=== PATIENT | female | born 1990 | race Hispanic/Latino ===

== ENCOUNTER 2017-04-12 05:09 | Emergency (ER) | payer OTHER ==
[~2017-04-12] VITALS: Ht 144.8 cm; Wt 74.4 kg
[~2017-04-12 05:09] MED LIST: ERYTHROM ETH400 MG OR; IBUPROFEN600 MG PO; LOMOTIL2.5 MG PO; LOTRISONE EX; PRENATA8 PO; ROBITUSS13 OR; ROBITUSSI8 OR
[2017-04-12] MEDS ORDERED: PERCOCET 5/325M1 TAB PO (05:29)
[2017-04-12] MEDS ORDERED: AMOXICILLIN500 MG PO (05:29)
[2017-04-12 05:50] VITALS: BP 120/70
== END 2017-04-12 05:50 | disposition home or self-care (01) | DRG 153 ==
LOC: ED 05:09
DX: H66.91 Otitis media, unspecified, right ear (principal); H60.501 Unspecified acute noninfective otitis externa, right ear

== ENCOUNTER 2018-07-22 16:10 | Emergency (ER) | payer OTHER ==
[~2018-07-22] VITALS: Ht 144.8 cm; Wt 59.2 kg
[~2018-07-22 16:10] MED LIST changes: +AMOXICILLIN500 MG PO; +PERCOCET 5/325M1 TAB PO
[2018-07-22 17:05] LABS: URINE BILIRUBIN - DIPSTICK NEGATIVE (NEGATIVE); URINE BLOOD DIPSTICK TRACE-LYSED (NEGATIVE); URINE COLOR YELLOW; URINE GLUCOSE - DIPSTICK NEGATIVE (NEGATIVE); URINE KETONE NEGATIVE (NEGATIVE); URINE LEUK ESTERASE NEGATIVE (NEGATIVE); URINE NITRITE - DIPSTICK NEGATIVE (Negative); URINE PH 8.5 (4.5-8.0); URINE PROTEIN - DIPSTICK TRACE mg/dL (NEG-TRACE); URINE SPECIFIC GRAVITY 1.015
[2018-07-22 17:08] LABS: HEMOGLOBIN 13.8 g/dl (12.0-16.0); IMMATURE GRANULOCYTES 0.9 % (0.0-5.0); MEAN CELL VOLUME 91.2 fL CALC (80.0-100.0); MEAN CORPUSCULAR HGB 30.5 pG CALC (26.0-32.0); MEAN CORPUSCULAR HGB CONC 33.5 g/L CALC (32.0-36.0); NEUT# 6.78 thou/uL (2.00-7.15); RED BLOOD COUNT 4.52 mill/uL (4.20-5.60); RED CELL DISTRI WIDTH 12.7 % (11.5-15.5)
[2018-07-22 17:09] LABS: HEMATOCRIT 41.2 % (37.0-47.0)
[2018-07-22 17:24] LABS: ALBUMIN 3.4 g/dL (3.2-5.0); BILIRUBIN, TOTAL 0.3 mg/dL (0.0-1.4); BUN 5 mg/dL (7-17); BUN/CREATININE RATIO 9 (12-20 (CALC)); CHLORIDE 108 mmol/l (95-108); CREATININE 0.6 mg/dL (0.5-1.0); GFR > 60 ML/MIN (>=60 (CALC)); GFR FOR AFR.AMER. > 60 ML/MIN (>=60 (CALC)); LIPASE 296 u/l (23-300); POTASSIUM 3.7 mmol/l (3.5-5.1); SGOT/AST 16 u/l (14-36); TOTAL PROTEIN 6.4 g/dL (6.3-8.2)
[2018-07-22 17:29] LABS: ALKALINE PHOSPHATASE 117 u/l (38-126); ANION GAP 12 (6-22 (CALC)); CARBON DIOXIDE 25 mmol/l (22-30); SODIUM 141 mmol/l (137-146)
[2018-07-22] MEDS ORDERED: ONDANSETRON4 MG PO (18:55)
[2018-07-22 19:07] VITALS: BP 102/68
== END 2018-07-22 19:07 | disposition home or self-care (01) ==
LOC: ED 16:10
PROVIDERS: Family Medicine
DX: R10.13 Epigastric pain (principal); R10.11 Right upper quadrant pain; R11.2 Nausea with vomiting, unspecified; R19.7 Diarrhea, unspecified; K42.9 Umbilical hernia without obstruction or gangrene
CPT/HCPCS: Q9967

== ENCOUNTER 2018-11-25 19:28 | Emergency (ER) | payer OTHER ==
[~2018-11-25] VITALS: Ht 144.8 cm; Wt 70.0 kg
[~2018-11-25 19:28] MED LIST changes: +ONDANSETRON4 MG PO
[2018-11-25 20:16] LABS: HEMATOCRIT 44.3 % (37.0-47.0); HEMOGLOBIN 14.3 g/dl (12.0-16.0); IMMATURE GRANULOCYTES 1.2 % (0.0-5.0); MEAN CELL VOLUME 93.7 fL CALC (80.0-100.0); MEAN CORPUSCULAR HGB 30.2 pG CALC (26.0-32.0); MEAN CORPUSCULAR HGB CONC 32.3 g/L CALC (32.0-36.0); NEUT# 10.56 thou/uL (2.00-7.15); RED BLOOD COUNT 4.73 mill/uL (4.20-5.60); RED CELL DISTRI WIDTH 13.2 % (11.5-15.5)
[2018-11-25 20:22] LABS: URINE BILIRUBIN - DIPSTICK NEGATIVE (NEGATIVE); URINE BLOOD DIPSTICK NEGATIVE (NEGATIVE); URINE COLOR YELLOW; URINE GLUCOSE - DIPSTICK NEGATIVE (NEGATIVE); URINE KETONE TRACE mg/dL (NEGATIVE); URINE NITRITE - DIPSTICK NEGATIVE (Negative); URINE PROTEIN - DIPSTICK NEGATIVE (NEG-TRACE); URINE SPECIFIC GRAVITY >=1.030; URINE UROBILINOGEN - DIPSTICK 0.2 E.U./dL (0.2)
[2018-11-25 20:26] LABS: URINE LEUK ESTERASE SMALL (NEGATIVE)
[2018-11-25 20:33] LABS: URINE SQUAMOUS EPITHELIAL CELL FEW EPI/hpf (0-FEW); URINE WBC 20-50 WBC/hpf (0-5)
[2018-11-25 20:41] LABS: ALKALINE PHOSPHATASE 102 u/l (38-126); AMYLASE 80 u/l (30-110); ANION GAP 13 (6-22 (CALC)); BILIRUBIN, TOTAL 0.4 mg/dL (0.0-1.4); BUN 9 mg/dL (7-17); BUN/CREATININE RATIO 12 (12-20 (CALC)); CARBON DIOXIDE 28 mmol/l (22-30); CHLORIDE 102 mmol/l (95-108); CREATININE 0.7 mg/dL (0.5-1.0); GFR > 60 ML/MIN (>=60 (CALC)); GFR FOR AFR.AMER. > 60 ML/MIN (>=60 (CALC)); LIPASE 193 u/l (23-300); POTASSIUM 4.1 mmol/l (3.5-5.1); SGOT/AST 21 u/l (14-36); SODIUM 139 mmol/l (137-146); TOTAL PROTEIN 7.6 g/dL (6.3-8.2)
[2018-11-25 20:44] LABS: ALBUMIN 4.6 g/dL (3.2-5.0)
[2018-11-25] MEDS ORDERED: MIRALAX3350 N1 PO (21:21)
[2018-11-25] MEDS ORDERED: BACTRIM DS1 TAB PO (21:21)
[2018-11-25 21:50] VITALS: BP 129/73
== END 2018-11-25 21:47 | disposition home or self-care (01) ==
LOC: ED 19:28
PROVIDERS: Family Medicine
DX: N39.0 Urinary tract infection, site not specified (principal); K59.00 Constipation, unspecified; B96.20 Unspecified Escherichia coli [E. coli] as the cause of diseases classified elsewhere; F17.210 Nicotine dependence, cigarettes, uncomplicated

== ENCOUNTER 2019-10-03 | Emergency (ER) | payer OTHER ==
[~2019-10-03] MED LIST changes: +BACTRIM DS1 TAB PO; +MIRALAX3350 N1 PO
[2019-10-03] MEDS ORDERED: AMOXICILLIN500 M2 PO (02:34)
[2019-10-03] MEDS ORDERED: FEVER REDUCER120 MG PO (02:34)
[2019-10-03] MEDS ORDERED: ULTRAM50 M1 PO (02:35)
== END 2019-10-03 03:07 | disposition home or self-care (01) ==
DX: K02.9 Dental caries, unspecified (principal); F17.200 Nicotine dependence, unspecified, uncomplicated

== ENCOUNTER 2019-12-04 02:30 | Observation (INO) | payer OTHER ==
[2019-12-04] VITALS (8 sets, daily range): BP systolic 78–111; BP diastolic 51–68
[~2019-12-04] VITALS: Ht 152.4 cm; Wt 69.6 kg
[~2019-12-04 02:30] MED LIST changes: +AMOXICILLIN500 M2 PO; +FEVER REDUCER120 MG PO; +ULTRAM50 M1 PO
--- NOTE | 2019-12-04 02:33 | NUR ---
PT ARRIVED VIA DCFR WITH DCSO WITH PT. PT VERY AGITATED AND UNCOOPERATIVE. REFUSING TO GET OFF OF EMS STRETCHER....WAIT A MINUTE...WHY ARE YOU SO AGGRESSIVE. AFTER APPROX 5 MINUTES...ATTEMPTED TO MOVE PT TO STRETCHER AND THEN PT MOVED HERSELF. PT APPEARS TO BE HALLUCINATING...DENIES. PT IS ALERT. ORIENTED TO PERSON AND PLACE. MAE. LAN[place]STER.. PLACED ON PULSE OX AND HR IS 140.
--- NOTE | 2019-12-04 02:45 | NUR ---
ATTEMPTED TO GET EKG WITHOUT SUCCESS. PT UNCOOPERATIVE. NOTIFIED. MEDS ORDERED.
--- NOTE | 2019-12-04 03:00 | NUR ---
WHEN I WAS HELPING PT. CHANGE FROM STREET CLOTHS TO HOSPITAL GOWN A SMALL PLASTIC BEG WITH A WHITE SUBSTANCE FELL OUT OF THE RIGHT SIDE OF HER BRA. GIVEN TO OFFICER VICTOR HUGO OLMOS # [id number].
--- NOTE | 2019-12-04 03:00 | NUR ---
VERSED GIVEN/EKG COMPLETED. PT UNDRESSED AND CHANGED INTO GOWN. ATTEMPTED IV START BUT WAS UNABLE....PT UNCOOPERATIVE....2 PT SOFT RESTRAINTS APPLIED TO UPPER EXTREMITIES.
--- NOTE | 2019-12-04 03:20 | NUR ---
IV STARTED/BLOOD DRAWN. PT CATHED WITH MINI CATH FOR URINE SAMPLE. ATIVAN GIVEN. PT RE-POSITIONED.
[2019-12-04 03:27] LABS: HEMATOCRIT 46.7 % (37.0-47.0); HEMOGLOBIN 15.5 g/dl (12.0-16.0); IMMATURE GRANULOCYTES 0.7 % (0.0-5.0); MEAN CELL VOLUME 91.6 fL CALC (80.0-100.0); MEAN CORPUSCULAR HGB 30.4 pG CALC (26.0-32.0); MEAN CORPUSCULAR HGB CONC 33.2 g/dL CAL (32.0-36.0); NEUT# 14.82 thou/uL (2.00-7.15); RED BLOOD COUNT 5.1 mill/uL (4.20-5.60); RED CELL DISTRI WIDTH 12.2 % (11.5-15.5)
[2019-12-04 03:29] LABS: URINE BLOOD DIPSTICK NEGATIVE (NEGATIVE); URINE CLARITY CLEAR; URINE COLOR YELLOW; URINE GLUCOSE - DIPSTICK NEGATIVE (NEGATIVE); URINE KETONE TRACE mg/dL (NEGATIVE); URINE LEUK ESTERASE NEGATIVE (Negative); URINE NITRITE - DIPSTICK NEGATIVE (Negative); URINE PH 6.5 (4.5-8.0); URINE PROTEIN - DIPSTICK TRACE mg/dL (NEG-TRACE); URINE SPECIFIC GRAVITY 1.025; URINE UROBILINOGEN - DIPSTICK 0.2 E.U./dL (0.2)
--- NOTE | 2019-12-04 03:30 | NUR ---
PT KICKING OFF SHEET AND MANAGED TO GET COBAN AND PULSE OX OFF AGAIN. RIGHT ARM SECURED TIGHTER AND COBAN AND PULSE OX RE APPLIED.
[2019-12-04 03:37] LABS: URINE BILIRUBIN - DIPSTICK TRACE (NEGATIVE)
[2019-12-04 03:38] LABS: ALBUMIN 4.8 g/dL (3.2-5.0); ALKALINE PHOSPHATASE 94 u/l (38-126); BUN 13 mg/dL (7-17); BUN/CREATININE RATIO 18 (12-20 (CALC)); CHLORIDE 108 mmol/l (95-108); COCAINE NEGATIVE (NEGATIVE); CREATININE 0.7 mg/dL (0.5-1.0); ETHYL ALCOHOL 0 mg/dl (0-30); GFR > 60 ML/MIN (>=60 (CALC)); GFR FOR AFR.AMER. > 60 ML/MIN (>=60 (CALC)); POTASSIUM 3.4 mmol/l (3.5-5.1); SGOT/AST 23 u/l (14-36); SODIUM 140 mmol/l (137-146); TETRAHYDROCANNABIONOL NEGATIVE (NEGATIVE); TOTAL PROTEIN 8.5 g/dL (6.3-8.2)
[2019-12-04 03:39] LABS: BARBITURATES NEGATIVE (NEGATIVE); METHADONE NEGATIVE (NEGATIVE); OXCYCODONE NEGATIVE (NEGATIVE); TRICYLIC ANTIDEPRESSANTS NEGATIVE (NEGATIVE)
[2019-12-04 03:42] LABS: ANION GAP 19 (6-22 (CALC)); BILIRUBIN, TOTAL 0.7 mg/dL (0.0-1.4); CARBON DIOXIDE 16 mmol/l (22-30)
--- NOTE | 2019-12-04 04:00 | NUR ---
UNABLE TO RECONCILE MEDS.
--- NOTE | 2019-12-04 04:00 | NUR ---
PT THRASHING ABOUT. USING FOUL LAUNGUAGE. FINALLY HAD TO TIE AND TAPE SHEET TO BED TO KEEP PT FROM EXPOSING HERSELF. PT NOW HAS FALLEN ASLEEP.
--- NOTE | 2019-12-04 05:00 | NUR ---
DR BERRIOS NOTIFIEDOF LACTIC ACID LRVEL
--- NOTE | 2019-12-04 05:20 | NUR ---
TO CT VIA STRETCHER. PT REMAINS CALM/SLEEPING.
--- NOTE | 2019-12-04 06:00 | NUR ---
PT RETURNED FROM CT...BLOOD CULTURES X 2 AND ABG'S COMPLETED. PT IS NOW ALERT COOPERATIVE. ORIENTED TO PERSON, PLACE...BUT NOT CERTAIN WHY SHE IS HERE. EXPLAINED TO PT WHAT WAS GOING ON AND THAT SHE WOULD BE TAKEN TO ICU SHORTLY. CRITICAL PT IN ANOTHER ROOM....DELAY IN TRANSPORT.
--- NOTE | 2019-12-04 06:20 | NUR ---
PT RESTING. REPORT TO SUZANNE. PT TO FLOOR VIA STRETCHER WITH IV'S INFUSING.
--- NOTE | 2019-12-04 06:26 | NUR ---
29 yr old uzbek female admitted to icu8 per stretcher from er. pt drowsy but cooperative. transferred self to bed. bed weight obtained.
--- NOTE | 2019-12-04 06:55 | NUR ---
RECIEVED REPORT FROM JOSE PALACIOS. ASSUMED PT CARE.
--- NOTE | 2019-12-04 07:05 | NUR ---
PT RESTING IN BED, EYES CLOSED. AROUSED EASILY. PT REMAINS DROWSY. A&0X3, ABLE TO MAKE NEEDS KNOWN. SR ON TELEMETRY, DENIES CP, SOB OR DISTRESS AT THIS TME. RESPIRATIONS EVEN. UNLABORED, SA02@98%RA, LS CLEAR THROUGHOUT. ABDOMEN SOFT, NON-TENDER, LBM 5-15-20. 20G LH INFUSING NS@125ML/HR, NO S/S OF INFILTRATION OR INFECTION NOTED AT SITE. PT ASKING IF DCF OR THE POLICE ARE INVOLVED. THIS CARPENTER PROTOTYPE IS UNABLE TO PROVIDE WITH THAT INFORMATION AT THIS TIME. REFERRED PT TO CM FOR THAT INFORMATION. PT ORIENTED TO UNIT, ROOM, CALL LIGHT AND SAFETY. CALL LIGHT IN REACH. WILL MONITOR.
--- NOTE | 2019-12-04 07:55 | NUR ---
RECIEVED REPORT FROM JUSTYN PALACIOS. ASSUMED PT CARE.
--- NOTE | 2019-12-04 08:15 | NUR ---
DIETARY ON UNIT, BREAKFAST TRAY SET UP.
--- NOTE | 2019-12-04 09:07 | NUR ---
PT CALLED FOR ASSISTANCE WITH LOWERING THE BED, ASSISTANCE GIVEN.
--- NOTE | 2019-12-04 10:00 | NUR ---
PT RESTING IN BED WITH EYES CLOSED, RESPIRATIONS EVEN/UNLABORED. NO DISTRESS NOTED.
--- NOTE | 2019-12-04 11:00 | NUR ---
BALJIT LOPEZ AT BEDSIDE
--- NOTE | 2019-12-04 11:30 | NUR ---
DR. RICHTER AT BEDSIDE FOR ASSESSMENT AND TO DISCUSS PLAN OF CARE, NEW ORDERS RECIEVED.
--- NOTE | 2019-12-04 12:00 | NUR ---
IV site discontinued, cath intact. No edema , no redness, voices no discomfort.
--- NOTE | 2019-12-04 12:54 | NUR ---
SPOKE WITH [facility] FOR APPROVAL FOR TAXI, PERMISSION GRANTED. NOTIFIED AIR BRAKE WORKER.
--- NOTE | 2019-12-04 13:50 | NUR ---
Discharge instructions given. Patient verbalizes understanding of same. Discharged in stable condition via Wheelchair to Home with *Other. All belongings sent with pt.
== END 2019-12-04 13:50 | disposition home or self-care (01) ==
LOC: ED 02:30 → ED-I 04:26 → ED 04:52 → ICU 04:53
PROVIDERS: Emergency Medicine; ADMIT Internal Medicine; ATTEND Internal Medicine
DX: T43.621A Poisoning by amphetamines, accidental (unintentional), initial encounter (principal); T43.641A Poisoning by ecstasy, accidental (unintentional), initial encounter; R41.82 Altered mental status, unspecified; F15.122 Other stimulant abuse with intoxication with perceptual disturbance; F16.122 Hallucinogen abuse with intoxication with perceptual disturbance; E87.2 Acidosis; F17.200 Nicotine dependence, unspecified, uncomplicated; Z11.59 Encounter for screening for other viral diseases
CPT/HCPCS: J2060

== ENCOUNTER 2019-12-10 16:27 | Observation (INO) | payer OTHER ==
--- NOTE | 2019-12-10 16:27 | NUR ---
PT TO ROOM VIA EMS STRETCHER. PT EMS STAFF PT WAS GIVEN 350 MG OF KETAMINE SHIP'S PILOT. PT AWAKENS TO VERBAL STIMULI BUT FALLS RIGHT BACK TO SLEEP. PT HAS HISTORY OF METAMPHETAMINE ABUSE.
--- NOTE | 2019-12-10 17:00 | NUR ---
NASOPHARENGEAL SWAB TO RIGHT NARES COLLECTED FOR COVID SWAB.
[2019-12-10 17:10] LABS: URINE BLOOD DIPSTICK NEGATIVE (NEGATIVE); URINE COLOR YELLOW; URINE GLUCOSE - DIPSTICK NEGATIVE (NEGATIVE); URINE KETONE 40 mg/dL (NEGATIVE); URINE LEUK ESTERASE NEGATIVE (NEGATIVE); URINE NITRITE - DIPSTICK NEGATIVE (Negative); URINE PH 6.5 (4.5-8.0); URINE PROTEIN - DIPSTICK 30 mg/dL (NEG-TRACE); URINE SPECIFIC GRAVITY 1.025
--- NOTE | 2019-12-10 17:10 | NUR ---
RETURNED FROM CT SCAN. PT RESTING IN STRETCHER WITH EYES CLOSED. IV FLUIDS INFUSING. PT SLOW TO RESPOND BUT OPENS EYES TO VERBAL STIMULI.
[2019-12-10 17:14] LABS: URINE BILIRUBIN - DIPSTICK SMALL (NEGATIVE)
[2019-12-10 17:15] LABS: COCAINE NEGATIVE (NEGATIVE); HEMATOCRIT 49.8 % (37.0-47.0); HEMOGLOBIN 16.6 g/dl (12.0-16.0); IMMATURE GRANULOCYTES 1.1 % (0.0-5.0); MEAN CELL VOLUME 90.1 fL CALC (80.0-100.0); MEAN CORPUSCULAR HGB CONC 33.3 g/dL CAL (32.0-36.0); METHADONE NEGATIVE (NEGATIVE); NEUT# 11.23 thou/uL (2.00-7.15); RED BLOOD COUNT 5.53 mill/uL (4.20-5.60); RED CELL DISTRI WIDTH 12.7 % (11.5-15.5); TETRAHYDROCANNABIONOL NEGATIVE (NEGATIVE); TRICYLIC ANTIDEPRESSANTS NEGATIVE (NEGATIVE); URINE SQUAMOUS EPITHELIAL CELL FEW EPI/hpf (0-FEW)
[2019-12-10 17:16] LABS: BARBITURATES NEGATIVE (NEGATIVE); OXCYCODONE NEGATIVE (NEGATIVE)
[2019-12-10 17:34] LABS: ALBUMIN 5.1 g/dL (3.2-5.0); ALKALINE PHOSPHATASE 106 u/l (38-126); BUN 16 mg/dL (7-17); BUN/CREATININE RATIO 17 (12-20 (CALC)); CARBON DIOXIDE 18 mmol/l (22-30); CHLORIDE 106 mmol/l (95-108); CPK 1339 u/l (30-165); CREATININE 0.9 mg/dL (0.5-1.0); ETHYL ALCOHOL 0 mg/dl (0-30); GFR > 60 ML/MIN (>=60 (CALC)); GFR FOR AFR.AMER. > 60 ML/MIN (>=60 (CALC)); LIPASE 87 u/l (23-300); SODIUM 142 mmol/l (137-146); TOTAL PROTEIN 8.9 g/dL (6.3-8.2)
[2019-12-10 17:35] LABS: ANION GAP 22 (6-22 (CALC)); BILIRUBIN, TOTAL 1.2 mg/dL (0.0-1.4); POTASSIUM 4.1 mmol/l (3.5-5.1); SGOT/AST 45 u/l (14-36)
--- NOTE | 2019-12-10 17:45 | NUR ---
PT OPENS EYES TO VERBAL STIMULI AND SLOWLY ANSWERING QUESTIONS. PT ALERT TO PERSON AND PLACE AT THIS TIME.
--- NOTE | 2019-12-10 18:00 | NUR ---
PT O2 TITRATED DOWN TO 2 L NC, SPO2 98%.
--- NOTE | 2019-12-10 18:20 | NUR ---
PT SITTING UPRIGHT IN STRETCHER AND DENIES ANY NEEDS AT THIS TIME. PT SPEECH SLURRED BUT SPEAKING IN FULL SENTANCES. IV FLUIDS INFUSING.
--- NOTE | 2019-12-10 18:45 | NUR ---
EKG PERFORMED. PT STATES SHE DOESNT KNOW WHERE SHE LIVES "I MOVE AROUND A LOT" PT ALERT NOW AND ORIENTED TO SELF ONLY. PT NEEDS FREQUENT REMINDERS TO KEEP BP CUFF AND PULSE OX ON.
--- NOTE | 2019-12-10 19:03 | NUR ---
REPORT TO ZACHARIAH BANKSRN
--- NOTE | 2019-12-10 19:09 | NUR ---
RECEIVED HANDOFF REPORT FROM DAY SHIFT. PATIENT HAS NO C/O PAIN OR DISCOMFORT, NO S/S OF DISTRESS, RESPIRATIONS EVEN AND UNLABORED. AWAITING INPATIENT BED.
--- NOTE | 2019-12-10 19:20 | NUR ---
REPORT GIVEN TO JOSE STOCKTON MED/SURG INPATIENT. UNABLE TOT TRANSPORT PATIENT TO FLOOR AT THIS TIME. AWAITING INPATIENT ORDERS.
--- NOTE | 2019-12-10 19:47 | NUR ---
PT TO [facility]ARRA/SURG INPATIENT BED.
--- NOTE | 2019-12-10 19:55 | NUR ---
PT ARRIVED TO FLOOR VIA STRETCHER ACCOMPAINED BY ER STAFF. PT AMBULATED X2 PERSON ASSIST. PT VERY DROWSY AND WEAK. ASSISTED PT IN BED. PT ALERT TO SELF. ORIENTED TO ROOM AND CALL LIGHT. MCDANIEL PATENT DRAINING TO GRAVITY. IV FLUIDS INITIATED. PT REFUSING ASSESSMENT, VS, AND ANY KIND OF TEACHING AT THIS TIME. PT BECOMES BILIGERENT AND THREATENING TO HARM STAFF. HEALTHCARE SOCIAL WORKER TURNED LIGHTS OFF DEMANDED BY PT AND HEALTHCARE SOCIAL WORKER THEN LEFT ROOM. NURSING MAINSPRING FORMER NOTIFIED OF THREATS AND [facility] CALLED AT THIS TIME.
--- NOTE | 2019-12-10 20:20 | NUR ---
[facility] ARRIVED FEMALE OFFICER IN ROOM WITH CONSTRUCTION MILLWRIGHT TO ATTEMPT TO SPEAK WITH PT ABOUT THREATS. PT REFUSED TO COMMUNICATE WITH OFFICER. PT REORIENTED BY CONSTRUCTION MILLWRIGHT WITH OFFICER PRESENT. PT ALLOW CONSTRUCTION MILLWRIGHT TO FIX SHIP'S PILOT LEADS. PT ALSO DENIES ANY PAIN OR DISCOMFORT. WILL CONTINUE TO MONITOR.
--- NOTE | 2019-12-10 20:45 | NUR ---
PT CRYING, MOANING, AND YELLING OUT. SEVERAL ATTEMPTS TO TALK WITH PT. WHEN ASKED WHATS WRONG PT STATES " I'M STRAIGHT". NO APPARENT DISTRESS NOTED. CARD PROCESSING CLERK PHYSICIAN NOTIFIED. NO NEW ORDERS RECEIVED. WILL CONTINUE TO MONITOR.
[2019-12-11] VITALS: BP 160/101
--- NOTE | 2019-12-11 00:18 | NUR ---
PT LAYING IN BED. PT REFUSING TO PUT GOWN, AND CONVENIENCE STORE CLERK BACK ON. REMAINS ALERT TO SELF. REORIENTED TO PLACE AND TIME. PT ROLLS EYES AND HAS LIMITED COVERSATION WITH STAFF. PT DOES NOT ANSWER QUESTIONS APPROPRIATELY. CALL LIGHT WITHIN REACH. WILL CONTINUE TO MONITOR.
--- NOTE | 2019-12-11 03:19 | NUR ---
BANQUET MANAGER OFF AT THIS TIME. PT REFUSING STAFF TO PUT MONITOR BACK ON. PT STILL BILIGERENT WITH STAFF. WILL CONTINUE TO MONITOR.
--- NOTE | 2019-12-11 03:44 | NUR ---
PT HAS REMOVED BOTH IV SITES. BLOOD NOTED TO SHEETS. IV SITE NO LONGER BLEEDING REFUSED PRESSURE DRESSINGS. PT LAYING IN BED NAKED. REFUSING TO GET CLEANED UP, REFUSING LINEN CHANGE, AND REFUSING TO PUT CLEAN GOWN ON. MCDANIEL REMAINS IN PLACE AND PATENT. PT MORE ALERT AT THIS TIME. NO APPARENT DISTRESS NOTED. DENIES ANY WANTS OR NEEDS. CALL LIGHT WITHIN REACH. WILL CONTINUE TO MONITOR.
--- NOTE | 2019-12-11 04:03 | NUR ---
PT REFUSED VS. PT STATES " FUCK THAT SHIT". RESIDENT INTERN REMOVED FROM ROOM PT CONTINUOUSLY REFUSED TO WEAR IT. ER NOTIFED.
--- NOTE | 2019-12-11 04:28 | NUR ---
PT NOTED PUNCHING HER THIGHS WITH HER HAND. PT CONFRONTED ABOUT HITTING HERSELF AND SHE STATES " BECAUSE I'M GOING RETARDED". PT ORIENTED TO PLACE, TIME, AND SITUATION. PT ASKED TO STOP HITTING HERSELF. PT STOPPED. WHEN ASKED IF ANYTHING WAS NEEDED. PT STATES " I DID NOT ASK FOR YOU ALL". PT REMAINS NAKED IN BED AND CONTINUES TO REFUSE GETTING DRESSES OR GETTING CLEANED UP WITH LINEN CHANGE. EDUCATION PROVIDED, PT REFUSES. WILL CONTINUE TO MONITOR.
--- NOTE | 2019-12-11 05:15 | NUR ---
REPORT RECEIVED FROM KATH ALEJANDRA. CARE ASSUMED.
--- NOTE | 2019-12-11 05:45 | NUR ---
PT RESTING IN BED AWAKE AND NAKED. PT IS ALERT. PT ABLE TO STATE NAME AND . PT RESPNSE TO YEAR "SHIT I DONT KNOW MAN" WHEN ASKED WHERE SHE IS "SHIT I DONT KNOW MAN" MCDANIEL REMOVED AT THIS TIME. PT INSTRUCTED TO NOTIFY STAFF WHEN ABLE TO VOID. INSTRUCTED PT THAT SHE NEEDED TO BE CLOTHED AND WOULD NOT LAY AROUND NAKED. PT PUT GOWN ON. PT CONTINUES TO REFUSE IV ACCESS. CALL LIGHT IN REACH. WILL CONTINUE TO MONITOR.
[2019-12-11 06:13] LABS: HEMATOCRIT 44.5 % (37.0-47.0); MEAN CELL VOLUME 92.1 fL CALC (80.0-100.0); MEAN CORPUSCULAR HGB 30.2 pG CALC (26.0-32.0); MEAN CORPUSCULAR HGB CONC 32.8 g/dL CAL (32.0-36.0); NEUT# 8.29 thou/uL (2.00-7.15); RED BLOOD COUNT 4.83 mill/uL (4.20-5.60); RED CELL DISTRI WIDTH 12.6 % (11.5-15.5)
[2019-12-11 06:15] LABS: HEMOGLOBIN 14.6 g/dl (12.0-16.0)
[2019-12-11 06:37] LABS: ALKALINE PHOSPHATASE 83 u/l (38-126); ANION GAP 14 (6-22 (CALC)); BUN 10 mg/dL (7-17); BUN/CREATININE RATIO 15 (12-20 (CALC)); CARBON DIOXIDE 20 mmol/l (22-30); CHLORIDE 107 mmol/l (95-108); CPK 1249 u/l (30-165); CREATININE 0.6 mg/dL (0.5-1.0); GFR > 60 ML/MIN (>=60 (CALC)); GFR FOR AFR.AMER. > 60 ML/MIN (>=60 (CALC)); POTASSIUM 3.7 mmol/l (3.5-5.1); SGOT/AST 62 u/l (14-36); SODIUM 137 mmol/l (137-146)
[2019-12-11 06:40] LABS: TOTAL PROTEIN 7.1 g/dL (6.3-8.2)
--- NOTE | 2019-12-11 08:00 | NUR ---
PT CONTINUES TO REFUSE VITAL SIGNS TO BE OBTAINED.
--- NOTE | 2019-12-11 08:25 | NUR ---
PT ASSISTED WITH AM. PT MOCKING STAFF AND REPEATING WHAT STAFF SAYS. PT LAUGHS AND MOCKS NO MATTER WHAT STAFF SAYS. PT CURSES.
--- NOTE | 2019-12-11 08:32 | NUR ---
PHONED FOR NEXT OF KIN MOTHER SHERWIN BRADLEY LEFT MESSAGE FOR MOTHER TO CALL BACK.
--- NOTE | 2019-12-11 09:21 | NUR ---
NO MED REC COMPLETED IN ER. PT IS NOT COOPERATIVE WITH STAFF, PER MEDICATION CLAIM HISTORY, NO MAINTENANCE MEDS TAKEN BY PT. LAST FILLED RXS WERE TRAMADOL AND TERBINAFINE ON 10/20, PT WOULD HAVE COMPLETED COURSE OF BOTH MEDS BY NOW.
--- NOTE | 2019-12-11 10:00 | NUR ---
DR GOLD AT BEDSIDE
--- NOTE | 2019-12-11 10:15 | NUR ---
PT STATED TO DR GOLD SHE WANTS TO GO HOME.
--- NOTE | 2019-12-11 11:52 | NUR ---
PHONED PT HOME PHONE LISTED. NUMBER NOT ACCEPTING PHONE CALLS AT THIS TIME. PHONED PT NEXT OF KIN MOTHER SHERWIN BRADLEY. MESSAGE LEFT.
--- NOTE | 2019-12-11 11:54 | NUR ---
RECEIVED AUTHORIZATION FROM COUNTER CHECKER FOR CAB
--- NOTE | 2019-12-11 12:05 | NUR ---
DISCHARGE INSTRUCTIONS REVIEWED WITH PATIENT. PATIENT ABLE TO STATE HOME ADDRESS AT THIS TIME.
--- NOTE | 2019-12-11 12:10 | NUR ---
Discharge instructions given. Patient verbalizes understanding of same. Discharged in stable condition via TAXI to Home with SELF. All belongings sent with pt.
--- NOTE | 2019-12-13 08:05 | NUR ---
12/11/19 Patient is screened for rehab needs and had no needs at this time
--- NOTE | 2019-12-14 14:04 | NUR ---
ATTEMPTED TO CONTACT PATIENT TO GIVE TEST RESULTS. NO ANSWER AND NO VOICEMAIL.
--- NOTE | 2019-12-15 11:52 | NUR ---
ATTEMPTED TO CONTACT PATIENT TO GIVE TEST RESULTS. NO ANSWER AND NO VOICEMAIL.
== END 2019-12-11 12:10 | disposition home or self-care (01) ==
LOC: ED 16:27 → ED-I 18:31 → ED 18:51 → MS2 18:52 → ED-I 18:52 → MS2 18:57
PROVIDERS: Family Medicine; ADMIT Internal Medicine; ATTEND Internal Medicine
DX: F15.10 Other stimulant abuse, uncomplicated (principal); R94.4 Abnormal results of kidney function studies; Z20.828 Contact with and (suspected) exposure to other viral communicable diseases
CPT/HCPCS: G0378

== ENCOUNTER 2022-04-13 15:09 | Emergency (ER) | payer OTHER ==
[~2022-04-13] VITALS: Ht 152.4 cm; Wt 77.0 kg
[2022-04-13] VITALS (12 sets, daily range): BP systolic 85–131; BP diastolic 50–87
[2022-04-13 16:14] LABS: HEMOGLOBIN 15.3 g/dl (12.0-16.0); IMMATURE GRANULOCYTES 0.5 % (0.0-5.0); MEAN CELL VOLUME 90.4 fL CALC (80.0-100.0); MEAN CORPUSCULAR HGB 30.7 pG CALC (26.0-32.0); NEUT# 13.43 thou/uL (2.00-7.15); RED BLOOD COUNT 4.98 mill/uL (4.20-5.60); RED CELL DISTRI WIDTH 12.7 % (11.5-15.5)
[2022-04-13 16:31] LABS: ALKALINE PHOSPHATASE 70 u/l (38-126); ANION GAP 17 (6-22 (CALC)); BUN 12 mg/dL (7-17); BUN/CREATININE RATIO 17 (12-20 (CALC)); CARBON DIOXIDE 22 mmol/l (22-30); CHLORIDE 104 mmol/l (95-108); CREATININE 0.7 mg/dL (0.5-1.0); GFR FOR AFR.AMER. > 60 ML/MIN (>=60 (CALC)); GFR OTHER RACES > 60 ML/MIN (>=60 (CALC)); POTASSIUM 3.7 mmol/l (3.5-5.1); SGOT/AST 45 u/l (14-36); SODIUM 139 mmol/l (137-146)
[2022-04-13 16:34] LABS: ALBUMIN 4.9 g/dL (3.2-5.0); TOTAL PROTEIN 9.1 g/dL (6.3-8.2)
[2022-04-13 16:44] LABS: MYOGLOBIN 89 ng/mL (0 - 62)
[2022-04-13 18:39] LABS: URINE BILIRUBIN - DIPSTICK NEGATIVE (NEGATIVE); URINE BLOOD DIPSTICK NEGATIVE (NEGATIVE); URINE COLOR YELLOW; URINE GLUCOSE - DIPSTICK NEGATIVE (NEGATIVE); URINE KETONE NEGATIVE (NEGATIVE); URINE PROTEIN - DIPSTICK 30 mg/dL (NEG-TRACE); URINE SPECIFIC GRAVITY >=1.030; URINE UROBILINOGEN - DIPSTICK 0.2 E.U./dL (0.2)
[2022-04-13 18:45] LABS: URINE LEUK ESTERASE SMALL (NEGATIVE); URINE NITRITE - DIPSTICK NEGATIVE (Negative)
[2022-04-13 18:47] LABS: URINE SQUAMOUS EPITHELIAL CELL MODERATE EPI/hpf (0-FEW); URINE YEAST FEW hpf
[2022-05-03] MEDS ORDERED: CIPROFLOXACN500 MG PO (04:36)
== END 2022-04-13 19:17 | disposition home or self-care (01) ==
LOC: ED 15:09
PROVIDERS: Emergency Medicine
DX: N39.0 Urinary tract infection, site not specified (principal); B96.20 Unspecified Escherichia coli [E. coli] as the cause of diseases classified elsewhere; F15.10 Other stimulant abuse, uncomplicated; Z20.822 Contact with and (suspected) exposure to COVID-19

== ENCOUNTER 2022-06-02 10:31 | Emergency (ER) | payer OTHER ==
[~2022-06-02] VITALS: Ht 152.4 cm; Wt 90.9 kg
[~2022-06-02 10:31] MED LIST changes: +CIPROFLOXACN500 MG PO
[2022-06-02 11:40] LABS: HEMATOCRIT 46.2 % (37.0-47.0); HEMOGLOBIN 15.5 g/dl (12.0-16.0); IMMATURE GRANULOCYTES 0.4 % (0.0-5.0); MEAN CELL VOLUME 92.4 fL CALC (80.0-100.0); MEAN CORPUSCULAR HGB CONC 33.5 g/dL CAL (32.0-36.0); NEUT# 10.75 thou/uL (2.00-7.15)
[2022-06-02 11:46] LABS: URINE BLOOD DIPSTICK NEGATIVE (NEGATIVE); URINE COLOR YELLOW; URINE GLUCOSE - DIPSTICK NEGATIVE (NEGATIVE); URINE KETONE >=80 mg/dL (NEGATIVE); URINE LEUK ESTERASE NEGATIVE (NEGATIVE); URINE PROTEIN - DIPSTICK 30 mg/dL (NEG-TRACE); URINE SPECIFIC GRAVITY >=1.030
[2022-06-02 11:50] LABS: ALBUMIN 4.7 g/dL (3.2-5.0); ALKALINE PHOSPHATASE 87 u/l (38-126); ANION GAP 21 (6-22 (CALC)); BUN 12 mg/dL (7-17); BUN/CREATININE RATIO 15 (12-20 (CALC)); CARBON DIOXIDE 17 mmol/l (22-30); CHLORIDE 105 mmol/l (95-108); CREATININE 0.9 mg/dL (0.5-1.0); ETHYL ALCOHOL 0 mg/dl (0-30); GFR FOR AFR.AMER. > 60 ML/MIN (>=60 (CALC)); GFR OTHER RACES > 60 ML/MIN (>=60 (CALC)); POTASSIUM 3.9 mmol/l (3.5-5.1); SGOT/AST 34 u/l (14-36); SODIUM 139 mmol/l (137-146); TOTAL PROTEIN 8.4 g/dL (6.3-8.2)
[2022-06-02 11:52] LABS: URINE BILIRUBIN - DIPSTICK MODERATE (NEGATIVE); URINE NITRITE - DIPSTICK NEGATIVE (Negative)
[2022-06-02 11:53] LABS: URINE EPITHELIAL CELLS FEW EPI/hpf (0-FEW)
[2022-06-02 19:12] VITALS: BP 109/70
== END 2022-06-02 19:48 | disposition home or self-care (01) ==
LOC: ED 10:31
PROVIDERS: Family Medicine
DX: F15.90 Other stimulant use, unspecified, uncomplicated (principal)
CPT/HCPCS: J2060

== ENCOUNTER 2022-08-22 00:18 | Emergency (ER) | payer OTHER ==
[~2022-08-22] VITALS: Ht 152.4 cm; Wt 75.0 kg
[2022-08-22] VITALS (35 sets, daily range): BP systolic 71–140; BP diastolic 43–108
[2022-08-22 00:49] LABS: URINE BLOOD DIPSTICK NEGATIVE (NEGATIVE); URINE COLOR YELLOW; URINE GLUCOSE - DIPSTICK NEGATIVE (NEGATIVE); URINE KETONE 40 mg/dL (NEGATIVE); URINE LEUK ESTERASE NEGATIVE (NEGATIVE); URINE PROTEIN - DIPSTICK TRACE mg/dL (NEG-TRACE); URINE UROBILINOGEN - DIPSTICK 0.2 E.U./dL (0.2)
[2022-08-22 00:50] LABS: URINE BILIRUBIN - DIPSTICK SMALL (NEGATIVE)
[2022-08-22 00:51] LABS: URINE NITRITE - DIPSTICK NEGATIVE (Negative)
[2022-08-22 01:05] LABS: BASO% 0.3 % (0-3); EOS% 0.6 % (0-8); HEMATOCRIT 41.1 % (37.0-47.0); IMMATURE GRANULOCYTES 1.2 % (0.0-5.0); MEAN CELL VOLUME 92.6 fL CALC (80.0-100.0); MEAN CORPUSCULAR HGB 31.5 pG CALC (26.0-32.0); MEAN CORPUSCULAR HGB CONC 34.1 g/dL CAL (32.0-36.0); MONO% 8.6 % (2-13); NEUT# 9.24 thou/uL (2.00-7.15); NEUT% 78.3 % (42-76); RED BLOOD COUNT 4.44 mill/uL (4.20-5.60)
[2022-08-22 01:13] LABS: ALBUMIN 4.8 g/dL (3.2-5.0); ALKALINE PHOSPHATASE 88 u/l (38-126); ANION GAP 18 (6-22 (CALC)); BILIRUBIN, TOTAL 0.9 mg/dL (0.02-1.3); BUN 8 mg/dL (7-17); BUN/CREATININE RATIO 11 (12-20 (CALC)); CARBON DIOXIDE 20 mmol/l (22-30); CHLORIDE 104 mmol/l (95-108); CREATININE 0.8 mg/dL (0.5-1.0); GFR FOR AFR.AMER. > 60 ML/MIN (>=60 (CALC)); GFR OTHER RACES > 60 ML/MIN (>=60 (CALC)); POTASSIUM 2.9 mmol/l (3.5-5.1); SGOT/AST 40 u/l (14-36); SODIUM 139 mmol/l (137-146)
== END 2022-08-22 07:05 | disposition home or self-care (01) ==
LOC: ED 00:18
PROVIDERS: Emergency Medicine
DX: F19.10 Other psychoactive substance abuse, uncomplicated (principal); E87.6 Hypokalemia; E87.20 Acidosis, unspecified; Z20.822 Contact with and (suspected) exposure to COVID-19
CPT/HCPCS: S0166

== ENCOUNTER 2022-08-27 21:07 | Emergency (ER) | payer OTHER ==
[~2022-08-27] VITALS: Ht 152.4 cm; Wt 64.5 kg
[2022-08-27] VITALS (10 sets, daily range): BP systolic 104–126; BP diastolic 67–97
[2022-08-27 23:26] LABS: BASO% 0.3 % (0-3); EOS% 0.9 % (0-8); HEMATOCRIT 43.5 % (37.0-47.0); HEMOGLOBIN 14.4 g/dl (12.0-16.0); IMMATURE GRANULOCYTES 0.7 % (0.0-5.0); LYMPH% 24.5 % (15-41); MEAN CELL VOLUME 94.8 fL CALC (80.0-100.0); MEAN CORPUSCULAR HGB 31.4 pG CALC (26.0-32.0); MEAN CORPUSCULAR HGB CONC 33.1 g/dL CAL (32.0-36.0); MONO% 8.7 % (2-13); NEUT# 5.56 thou/uL (2.00-7.15); NEUT% 64.9 % (42-76); RED BLOOD COUNT 4.59 mill/uL (4.20-5.60); RED CELL DISTRI WIDTH 12.5 % (11.5-15.5)
[2022-08-27 23:28] LABS: ALBUMIN 4.6 g/dL (3.2-5.0); ALKALINE PHOSPHATASE 81 u/l (38-126); BUN 4 mg/dL (7-17); BUN/CREATININE RATIO 7 (12-20 (CALC)); CHLORIDE 106 mmol/l (95-108); CREATININE 0.6 mg/dL (0.5-1.0); GFR FOR AFR.AMER. > 60 ML/MIN (>=60 (CALC)); GFR OTHER RACES > 60 ML/MIN (>=60 (CALC)); SGOT/AST 39 u/l (14-36); SODIUM 139 mmol/l (137-146); TOTAL PROTEIN 7.7 g/dL (6.3-8.2)
[2022-08-27 23:32] LABS: ANION GAP 11 (6-22 (CALC)); BILIRUBIN, TOTAL 0.5 mg/dL (0.02-1.3); CARBON DIOXIDE 25 mmol/l (22-30); POTASSIUM 3.2 mmol/l (3.5-5.1)
[2022-08-28] VITALS (18 sets, daily range): BP systolic 90–130; BP diastolic 53–99
== END 2022-08-28 07:17 | disposition home or self-care (01) ==
LOC: ED 21:07
PROVIDERS: Emergency Medicine
DX: R45.1 Restlessness and agitation (principal); F15.10 Other stimulant abuse, uncomplicated

== ENCOUNTER 2022-09-14 08:04 | Emergency (ER) | payer OTHER ==
[~2022-09-14] VITALS: Ht 142.2 cm; Wt 68.0 kg
[2022-09-14] VITALS (10 sets, daily range): BP systolic 94–129; BP diastolic 59–80
[2022-09-14] MEDS ORDERED: CELEBREX200 M1 PO (12:20)
== END 2022-09-14 13:12 | disposition home or self-care (01) ==
LOC: ED 08:04
DX: T21.21XA Burn of second degree of chest wall, initial encounter (principal); F17.210 Nicotine dependence, cigarettes, uncomplicated; X08.8XXA Exposure to other specified smoke, fire and flames, initial encounter; Y92.009 Unspecified place in unspecified non-institutional (private) residence as the place of occurrence of the external cause